=== PATIENT | female | born 2000 | race African-American/Black ===

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

== ENCOUNTER 2021-10-13 09:53 | Emergency (ER) | payer OTHER ==
[~2021-10-13] VITALS: Ht 152.4 cm; Wt 54.5 kg
[~2021-10-13 09:53] MED LIST: OMEP10 PO
[2021-10-13 10:28] LABS: EOSINOPHILS % (AUTO) 0.5 % (1.0-6.0); HEMATOCRIT 33.1 % (36-46); LYMPHOCYTES # (AUTO) 1.2 K/uL (1.0-4.8); LYMPHOCYTES % (AUTO) 25.7 % (22.0-44.0); MEAN CORPUSCULAR HEMOGLOBIN 26.6 pg (26.0-34.0); MEAN CORPUSCULAR HGB CONC 33.3 G/dL (31.0-37.0); MEAN CORPUSCULAR VOLUME 80 fL (80-100); MONOCYTES # (AUTO) 0.4 K/uL (0.1-1.0); MONOCYTES % (AUTO) 9.6 % (2.0-9.0); NEUTROPHILS % (AUTO) 63.2 % (40.0-70.0); PLATELET COUNT (AUTO) 302 K/uL (150-450); RED BLOOD CELL COUNT(AUTO) 4.14 MIL/uL (4.00-5.20); RED CELL DISTRIBUTION WIDTH 18.4 % (11.5-14.5)
[2021-10-13 10:44] LABS: ANION GAP 10 mmol/L (8-16); CALCIUM, TOTAL 9.3 mg/dL (8.8-10.5); CARBON DIOXIDE 27 mmol/L (22-29); CHLORIDE 102 mmol/L (98-107); CREATININE 0.91 mg/dL (0.60-1.30); GLUCOSE,RANDOM 83 mg/dL (70-110); POTASSIUM 3.6 mmol/L (3.5-5.1); SODIUM SERUM 139 mmol/L (136-145); UREA NITROGEN, BLOOD 7 mg/dL (7-18)
[2021-10-13 10:46] LABS: GLOMERULAR FILTR. RATE CALC > 60 mL/min (>60)
[2021-10-13 10:50] LABS: ALANINE AMINOTRANSFERASE 17 U/L (12-78); ALBUMIN 4.3 g/dL (3.4-5.0); ALKALINE PHOSPHATASE 86 U/L (46-116); ASPARTATE AMINOTRANSFERASE 20 U/L (15-37); BILIRUBIN,TOTAL 0.4 mg/dL (0.1-1.0); TOTAL PROTEIN, SERUM 8.1 g/dL (6.4-8.2)
[2021-10-13 13:20] VITALS: BP 122/78
[2021-10-15 05:06] LABS: N.GONOCOCCUS by NAA (Viromed) Negative (Negative)
== END 2021-10-13 13:23 | disposition home or self-care (01) ==
LOC: EMS 09:59
DX: F31.9 Bipolar disorder, unspecified (principal); F12.90 Cannabis use, unspecified, uncomplicated
CPT/HCPCS: 99284; 80053; 85025; 36415; 87491; 87591; 87798; G0480; 99283

== ENCOUNTER 2021-10-13 19:49 | Emergency (ER) | payer OTHER ==
[~2021-10-13] VITALS: Ht 157.5 cm; Wt 54.5 kg
[2021-10-13 19:54] VITALS: BP 128/70
== END 2021-10-13 21:00 | disposition home or self-care (01) ==
LOC: EMS 19:49
DX: F31.9 Bipolar disorder, unspecified (principal); F12.90 Cannabis use, unspecified, uncomplicated; Z79.899 Other long term (current) drug therapy
CPT/HCPCS: 99281; Z7502

== ENCOUNTER 2025-01-11 17:26 | Emergency (ER) | payer MEDICAID, OTHER ==
[~2025-01-11] VITALS: Ht 152.4 cm; Wt 54.0 kg
[~2025-01-11 17:26] MED LIST changes: -OMEP10 PO; +OMEP10CA38 PO
[2025-01-11 18:15] VITALS: TEMP 98.6
[2025-01-11] MEDS ORDERED: QUET200T PO (19:14)
[2025-01-11 20:15] VITALS: BP 101/77; PULSE 66; RESP 17; O2SAT 99
== END 2025-01-11 22:22 | disposition home or self-care (01) ==
LOC: EMS 17:38
DX: F31.9 Bipolar disorder, unspecified (principal); F12.90 Cannabis use, unspecified, uncomplicated; Z79.899 Other long term (current) drug therapy; Z76.0 Encounter for issue of repeat prescription
CPT/HCPCS: 99282; Z7502